=== PATIENT | female | born 1930 | race Caucasian/White ===

== ENCOUNTER → 2019-03-26 | Outpatient (CLI) | payer OTHER ==
[~2019-03-26] MED LIST: ADULT LOW DOSE81 MG PO; CIPROFLOXACIN500 M1 PO; CIPROFLOXACIN500 M3 PO; CLARITIN10 MG PO; EVISTA PO; FLEXERIL PO; K-DUR 20 MEQ T20 MEQ PO; MULTIVITAMINS PO; NORCO 5-325 TA1 EACH PO; PROCARDIA XL60 MG PO
== END ==
LOC: RAD 01:21
DX: Z12.31 Encounter for screening mammogram for malignant neoplasm of breast (principal)

== ENCOUNTER → 2019-05-30 | Outpatient (CLI) | payer OTHER ==
[~2019-05-30] VITALS: Ht 154.9 cm; Wt 53.1 kg
[~2019-05-30] MED LIST changes: +OMEPRAZOLE 20 M20 M1 PO; +PROZAC10 MG PO
== END | disposition home or self-care (01) ==
LOC: GI 09:22
DX: K29.50 Unspecified chronic gastritis without bleeding (principal); K22.2 Esophageal obstruction; I10 Essential (primary) hypertension; J45.909 Unspecified asthma, uncomplicated; K21.9 Gastro-esophageal reflux disease without esophagitis; Z98.890 Other specified postprocedural states; Z90.710 Acquired absence of both cervix and uterus; Z98.41 Cataract extraction status, right eye; Z87.19 Personal history of other diseases of the digestive system; Z87.442 Personal history of urinary calculi; Z91.041 Radiographic dye allergy status; Z88.8 Allergy status to other drugs, medicaments and biological substances; Z79.899 Other long term (current) drug therapy; Z85.840 Personal history of malignant neoplasm of eye
CPT/HCPCS: 62110; 62900

== ENCOUNTER → 2020-05-16 | Outpatient (CLI) | payer OTHER ==
[~2020-05-16] VITALS: Ht 152.4 cm; Wt 52.2 kg
[2020-05-16 08:01] LABS: HEMOGLOBIN 6.6 gm/dL (12.0-15.0); WBC 4.7 thou/uL (4.0-11.0)
[2020-05-16 08:02] LABS: MCH 21.9 pg (26.0-34.0); MCHC 30.1 g/dL (28.0-37.0); MCV 72.7 fL (80.0-100.0); RBC 3.03 mil/uL (4.20-5.00)
--- NOTE | 2020-05-16 09:08 | EKG ---
[facility] [place] [address] ELECTROCARDIOGRAM REPORT Name: CIRILO BURNETT Room #: REG [facility]STER[facility]idenc[facility].#: [id number] Admission: 05/16/20 Attend Phys: Alfa Cartagena Discharge: Date of : 34 Report #: [id number] THIS REPORT FOR: cc: Artem Pittman MD, Rene P. MD Lundgren,Vance Rivera MD [facility] ~ THIS REPORT FOR: //name// [facility] Test Date: 2020-05-16 Test Time: 08:01:15 Pat Name: CIRILO BURNETT Department: Room: Gender: F Termite Helper: KORY : 1930 Requested By: Radha Robertson Order Number: [id number] MD: Vance Bill Measurements Intervals [place] Rate: 114 P: 72 LA: 147 QRS: 5 QRSD: 73 T: 51 QT: 319 QTc: 440 Interpretive Statements Sinus tachycardia Normal tracing Compared to ECG 12/11/2016 01:03:21 No significant changes Electronically Signed On 05-16-2020 9:08:32 CDT by Vance Bill [email or web address] <ELECTRONICALLY SIGNED> By: Vance Bill MD, [facility] 05/16/20 0908 0 0 Vance Bill MD, [facility] /EPI
[2020-05-16 13:35] LABS: HEMATOCRIT 26.6 % (37.0-47.0); HEMOGLOBIN 8.1 gm/dL (12.0-15.0)
--- NOTE | 2020-05-19 18:06 | PATH ---
[facility] [address] [place] [address] PATHOLOGY RPT PROCEDURE Name: CIRILO BURNETT Room #: REG NICK Lange#: [id number] Admission: 05/16/20 Date of : 34 Discharge: Report #: [id number] Path Case #: [id number] [facility] Accession Number: [id number] . 01 Material submitted: . esophagus - BIOPSY OF DISTAL ESOPHAGUS R/O BARRETTS. Modifiers: distal . 01 Clinical history: . Iron deficiency. . 02 Diagnosis: Gastroesophageal mucosa, distal esophagus to rule out Spring's, endoscopic biopsy: - Gastric cardia-type mucosa with moderate chronic inflammation - Squamous mucosa with mild esophagitis. - Negative for intestinal metaplasia or dysplasia. (IUV:program facilitator; 05/19/2020) MBR 05/19/2020 1243 Local . 02 Electronically signed: . Staci Cormier MD, Pathologist NPI- [id number] . 01 Gross description: . Received in formalin labeled "Cirilo Burnett, BX of distal esophagus rule out Spring's" is a 0.6 x 0.4 x 0.1 cm aggregate of sánchez-brown soft tissue fragments. The specimen is submitted entirely in A1. ([facility]; 05/18/2020) [facility] 05/18/2020 1251 Local . 02 Pathologist provided ICD-10: K20.9, D50.9 . 02 CPT . 022943 Specimen Comment: A courtesy copy of this report has been sent to [phone] Specimen Comment: Report sent to Performed at: [address], [place] [id number] MD Gage Ding MD Phone: [phone] Performed at: [address] [id number] MD Staci Cormier MD Phone: [phone]
== END | disposition home or self-care (01) ==
LOC: GI 07:15
PROVIDERS: Anesthesiology; ATTEND Specialist
DX: D50.9 Iron deficiency anemia, unspecified (principal); K57.30 Diverticulosis of large intestine without perforation or abscess without bleeding; K31.89 Other diseases of stomach and duodenum; K20.9 Esophagitis, unspecified; K44.9 Diaphragmatic hernia without obstruction or gangrene; I10 Essential (primary) hypertension; D64.9 Anemia, unspecified; M81.0 Age-related osteoporosis without current pathological fracture; F32.9 Major depressive disorder, single episode, unspecified; F41.9 Anxiety disorder, unspecified; K21.9 Gastro-esophageal reflux disease without esophagitis; Z11.59 Encounter for screening for other viral diseases; Z98.890 Other specified postprocedural states; Z79.899 Other long term (current) drug therapy; Z90.49 Acquired absence of other specified parts of digestive tract; Z90.710 Acquired absence of both cervix and uterus; Z87.442 Personal history of urinary calculi; Z98.41 Cataract extraction status, right eye; Z85.820 Personal history of malignant melanoma of skin; Z91.041 Radiographic dye allergy status; Z88.8 Allergy status to other drugs, medicaments and biological substances
CPT/HCPCS: 62110; 62900

== ENCOUNTER → 2020-10-23 | Outpatient (CLI) | payer OTHER | LOC: MRI 09:38 | PROVIDERS: ATTEND Family Medicine | DX: I67.89 Other cerebrovascular disease (principal); G31.9 Degenerative disease of nervous system, unspecified ==

== ENCOUNTER → 2021-01-01 | Outpatient (CLI) | payer OTHER | LOC: NUC 07:14 | PROVIDERS: ATTEND Nurse Practitioner | DX: E83.52 Hypercalcemia (principal); R79.89 Other specified abnormal findings of blood chemistry ==

== ENCOUNTER → 2021-05-05 | Outpatient (CLI) | payer OTHER | LOC: RAD 07:36 → NUC 10:27 | PROVIDERS: ATTEND Family Medicine | DX: M85.88 Other specified disorders of bone density and structure, other site (principal) ==

== ENCOUNTER → 2021-06-11 | Outpatient (CLI) | payer OTHER | LOC: CAT 09:40 | PROVIDERS: ATTEND Family Medicine | DX: N82.3 Fistula of vagina to large intestine (principal); J98.11 Atelectasis; J98.4 Other disorders of lung; N20.0 Calculus of kidney; K57.30 Diverticulosis of large intestine without perforation or abscess without bleeding; Z90.710 Acquired absence of both cervix and uterus ==